=== PATIENT | male | born 1980 | race Caucasian/White ===

== ENCOUNTER → 2016-06-23 | Outpatient (CLI) | payer OTHER ==
[2016-06-23 12:20] LABS: ALB/GLOB RATIO 0.9 (0.9-2); ALKALINE PHOSPHATASE 89 U/L (45-117); ALT/SGPT 26 U/L (12-78); AST/SGOT 13 U/L (15-37); BLOOD UREA NITROGEN 17 mg/dl (7-18); BUN/CREATININE RATIO 18.1 (10-20); CARBON DIOXIDE 30 mmol/L (21-32); CHLORIDE 106 mmol/L (98-107); CHOLESTEROL 157 mg/dl (0-200); CREATININE 0.96 mg/dl (0.60-1.40); GLUCOSE 265 mg/dl (70-99); POTASSIUM 4.2 mmol/L (3.5-5.1); SODIUM 141 mmol/L (136-145); TRIGLYCERIDES 137 mg/dl (0-150); VERY LOW DENSITY LIPOPROT CALC 27 mg/dl
[2016-06-23 12:26] LABS: ESTIMATED AVERAGE GLUCOSE 269 mg/dl; HA1C FLAG Normal (Normal)
[2016-06-23 12:28] LABS: CHOLESTEROL/HDL RATIO 3.3; HDL CHOLESTEROL 48 mg/dl; LDL CHOLESTEROL CALCULATED 82 mg/dl
[2016-06-23 14:13] LABS: RATIO 1106.9 mcg/mg (0-30.0)
== END | disposition home or self-care (01) ==
LOC: C.LAB1850 10:15
PROVIDERS: ATTEND Physician Assistant
DX: E10.65 Type 1 diabetes mellitus with hyperglycemia (principal)